=== PATIENT | male | born 1970 | race Asian ===

== ENCOUNTER 2019-06-27 07:23 | Emergency (ER) | payer OTHER ==
[~2019-06-27] VITALS: Ht 167.6 cm; Wt 89.8 kg
[2019-06-27 07:40] VITALS: BP 154/86; TEMP 97.3
== END 2019-06-27 09:35 | disposition home or self-care (01) ==
LOC: ED 07:23
PROC: 0H9HXZZ Drainage of Right Upper Leg Skin, External Approach (ICD-10-PCS; principal; 2019-06-27)
DX: L02.415 Cutaneous abscess of right lower limb (principal)
CPT/HCPCS: 87070; 87077; 87185; 87186; 87205; 99283

== ENCOUNTER 2019-06-29 07:00 | Emergency (ER) | payer OTHER ==
[~2019-06-29] VITALS: Ht 167.6 cm; Wt 89.8 kg
[2019-06-29 07:17] VITALS: TEMP 97.3
[2019-06-29 07:43] VITALS: BP 153/89
== END 2019-06-29 07:43 | disposition home or self-care (01) ==
LOC: ED 07:00
DX: Z48.01 Encounter for change or removal of surgical wound dressing (principal)
CPT/HCPCS: 99282

== ENCOUNTER 2019-07-01 06:29 | Emergency (ER) | payer OTHER ==
[~2019-07-01] VITALS: Ht 167.6 cm; Wt 89.8 kg
[2019-07-01 06:40] VITALS: BP 155/82; TEMP 97.5
== END 2019-07-01 07:15 | disposition home or self-care (01) ==
LOC: ED 06:29
DX: Z51.89 Encounter for other specified aftercare (principal)